=== PATIENT | male | born 1970 | race Caucasian/White ===

== ENCOUNTER 2024-10-27 22:17 | Emergency (ER) | payer SELFPAY ==
[~2024-10-27] VITALS: Ht 167.6 cm; Wt 73.0 kg
[2024-10-27 22:25] VITALS: O2SAT 98
[2024-10-27 23:07] LABS: CLARITY URINE CLEAR (CLEAR); COLOR URINE YELLOW (YELLOW); GLUCOSE URINE NEGATIVE (NEGATIVE); KETONES URINE NEGATIVE (NEGATIVE); LEUKOCYTE ESTERASE URINE NEGATIVE (NEGATIVE); NITRITE URINE NEGATIVE (NEGATIVE); OCCULT BLOOD URINE NEGATIVE (NEGATIVE); PH URINE 8.5 (4.5-8.0); PROTEIN URINE NEGATIVE (NEGATIVE); SPECIFIC GRAVITY URINE 1.019 (1.005-1.030); UROBILINOGEN URINE 0.2 E.U./dL (0.2-1.0)
[2024-10-27] MEDS: IBUPROFEN 600MG TABLET PO STA (23:11)
[2024-10-27] MEDS: ACETAMINOPHEN 325MG TABLET PO STA (23:11)
[2024-10-27] MEDS: ONDANSETRON 4MG ODT PO STA (23:12)
[2024-10-27 23:26] LABS: HEMATOCRIT. 40.6 % (42.0-52.0); HEMOGLOBIN. 14.4 g/dL (14.0-18.0); MEAN CORPUSCULAR HEMOGLOBIN 34.8 pg (28.0-32.0); MEAN CORPUSCULAR HGB CONC 35.5 g/dL (31.0-37.0); MEAN CORPUSCULAR VOLUME 98.2 fL (80.0-94.0); MEAN PLATELET VOLUME 8.6 fl (7.4-10.4); PLATELET 171 x1000/uL (130-400); RED BLOOD CELL COUNT 4.13 mill/uL (4.7-6.1); RED CELL DISTRIBUTION WIDTH 12.8 % (11.6-14.6); WHITE BLOOD COUNT 6.5 x1000/uL (4.5-11.0)
[2024-10-27 23:28] LABS: CHLORIDE 100 mEq/L (98-107); POTASSIUM 3.8 mEq/L (3.5-5.1); SODIUM 136 mEq/L (136-145)
[2024-10-27 23:29] LABS: CARBON DIOXIDE 27 mEq/L (21-32)
[2024-10-27 23:30] LABS: CALCIUM 9.2 mg/dL (8.7-10.4)
[2024-10-27 23:34] LABS: CREATININE 0.7 mg/dL (0.6-1.3); GLUCOSE 104 mg/dL (70-105)
[2024-10-27 23:35] LABS: UREA NITROGEN BLOOD 11 mg/dL (9-23)
[2024-10-27 23:40] LABS: DIFFERENTIAL COMMENT 1
[2024-10-28 00:04] LABS: INFLUENZA TYPE A Presumptive Negative (Pres. Neg.)
[2024-10-28 00:05] LABS: INFLUENZA TYPE B Presumptive Negative (Pres. Neg.)
[2024-10-28 00:25] LABS: RESPIRATORY SYNCYTIAL VIRUS Not Detected (Not Detectd)
[2024-10-28 00:46] VITALS: BP 123/75; PULSE 102; RESP 20; TEMP 36.9; O2SAT 97
[2024-10-28 05:09] LABS: PLATELET ESTIMATE NORMAL
== END 2024-10-28 00:52 | disposition home or self-care (01) ==
LOC: ER 22:17
DX: B34.9 Viral infection, unspecified (principal); Z20.822 Contact with and (suspected) exposure to COVID-19
CPT/HCPCS: 99284; 71045; 87426; 80048; 81003; 85025; 87420; 87804 ×2; 36415; Q0162